=== PATIENT | male | born 1965 | race Caucasian/White ===

== ENCOUNTER 2016-08-28 09:12 | Outpatient (CLI) | payer OTHER ==
[2016-08-28 13:50] LABS: BUN - BLOOD UREA NITROGEN 20 mg/dL (6-20); CALCIUM 9.8 mg/dL (8.5-10.3); CARBON DIOXIDE - CO2 23 mmol/L (21-32); CHLORIDE 105 mmol/L (101-111); CHOL/HDL RATIO 4.7 (<5.0); CHOLESTEROL 177 mg/dL; CREATININE 0.8 mg/dL (0.6-1.2); GFR - MDRD 103 (>89); GLUCOSE 186 mg/dL (70-100); HDL CHOLESTEROL 38 mg/dL; LDL/HDL RATIO 2.4 (<3.6); SODIUM 136 mmol/L (135-145); TRIGLYCERIDES 228 mg/dL; VLDL CHOLESTEROL 46 mg/dL
== END 2016-08-28 09:13 | disposition home or self-care (01) ==
LOC: LAB.WCP 09:12
PROVIDERS: ATTEND Family Medicine
DX: Z00.00 Encounter for general adult medical examination without abnormal findings (principal)
CPT/HCPCS: 36415; 80048; 80061

== ENCOUNTER 2016-10-02 07:47 | Outpatient (CLI) | payer OTHER ==
[2016-10-02 14:36] LABS: HEMOGLOBIN A1C 0.92 g/dL
== END 2016-10-02 07:48 | disposition home or self-care (01) ==
LOC: LAB.WCP 07:47
PROVIDERS: ATTEND Family Medicine
DX: R73.01 Impaired fasting glucose (principal)
CPT/HCPCS: 36415; 82947; 83036

== ENCOUNTER 2017-01-14 07:47 | Outpatient (CLI) | payer OTHER ==
[2017-01-14 13:22] LABS: HEMOGLOBIN A1C 0.78 g/dL
== END 2017-01-14 07:48 | disposition home or self-care (01) ==
LOC: LAB.WCP 07:47
PROVIDERS: ATTEND Family Medicine
DX: E11.9 Type 2 diabetes mellitus without complications (principal)
CPT/HCPCS: 36415; 83036

== ENCOUNTER 2017-08-06 08:00 | Outpatient (CLI) | payer OTHER ==
[2017-08-06 13:03] LABS: HB2 TOTAL 17.2 g/dL; HEMOGLOBIN A1C 0.71 g/dL; HEMOGLOBIN A1C % 5.9 % (4.6-6.2)
[2017-08-06 13:04] LABS: ALBUMIN 4.2 g/dL (3.2-5.5); ALBUMIN/GLOBULIN RATIO 1.6 (1.0-2.2); ALKALINE PHOSPHATASE 42 IU/L (42-121); ALT ALANINE AMINOTRANSFERASE 48 IU/L (10-60); AST ASPARTATE AMINOTRANSFERASE 38 IU/L (10-42); BILIRUBIN,TOTAL 0.6 mg/dL (0.2-1.0); BUN - BLOOD UREA NITROGEN 16 mg/dL (6-20); CALCIUM 9.8 mg/dL (8.5-10.3); CARBON DIOXIDE - CO2 24 mmol/L (21-32); CHLORIDE 109 mmol/L (101-111); CHOL/HDL RATIO 3.5 (<5.0); CHOLESTEROL 110 mg/dL; CREATININE 0.9 mg/dL (0.6-1.2); GFR - MDRD 89 (>89); GLUCOSE 131 mg/dL (70-100); HDL CHOLESTEROL 31 mg/dL; LDL CHOLESTEROL,CALCULATED 57 mg/dL; LDL/HDL RATIO 1.8 (<3.6); SODIUM 138 mmol/L (135-145); TOTAL PROTEIN 6.9 g/dL (6.7-8.2); VLDL CHOLESTEROL 22 mg/dL
== END 2017-08-06 08:01 ==
LOC: LAB.WCP 08:00
PROVIDERS: ATTEND Family Medicine
DX: E11.9 Type 2 diabetes mellitus without complications (principal); I10 Essential (primary) hypertension; E78.5 Hyperlipidemia, unspecified; Z12.5 Encounter for screening for malignant neoplasm of prostate
CPT/HCPCS: 36415; 80053; 80061; 83036; 83721; 84153

== ENCOUNTER 2021-04-08 08:00 | Outpatient (CLI) | payer OTHER ==
--- NOTE | 2021-04-08 17:37 | XRAY Report ---
PROCEDURE: Elbow 3 View LT INDICATIONS: OLECRANON BURSITIS, LEFT ELBOW DIRTECT TRAUMA WEEKS AGO TECHNIQUE: 3 views of the elbow were acquired. COMPARISON: None FINDINGS: Bones: No fractures or dislocations. No suspicious bony lesions. Soft tissues: No elbow joint effusion. Soft tissue swelling noted of the dorsal margin of the elbow joint compatible with reported olecranon bursitis. Calcification noted dorsal to the olecranon proces s concerning for triceps calcific tendinitis. IMPRESSION: 1. Triceps calcific tendinitis. 2. Olecranon bursitis. Reviewed by: Genesis Trimble MD, PhD on 04/08/2021 4:36 PM [facility] Approved by: Genesis Trimble MD, PhD on 04/08/2021 4:36 PM [facility] Station ID: [id number]
== END 2021-04-08 23:59 ==
LOC: DI.N 08:00
PROVIDERS: ATTEND Physician Assistant Medical
DX: M70.22 Olecranon bursitis, left elbow (principal)

== ENCOUNTER 2021-05-02 15:00 | Outpatient (CLI) | payer OTHER ==
--- NOTE | 2021-05-02 16:06 | XRAY Report ---
PROCEDURE: Elbow 3 View LT INDICATIONS: DISPLAC FX OF OLECRANON PROCESS W/O INTRAARTICULAR EXT OF L ULNA TECHNIQUE: 3 views of the elbow were acquired. COMPARISON: April 08, 2021 FINDINGS: BONES/JOINT: No acute, displaced fracture or dislocation. No appreciable joint effusion. Small olecra non enthesophyte. SOFT TISSUES: Soft tissue prominence overlying the olecranon, which may reflect bursitis. Redemonstra agata calcification posterior to the olecranon, which may reflect triceps calcific tendinopathy versus intra-articular body. IMPRESSION: 1.Soft tissue prominence overlying the olecranon, suggesting bursitis. 2.Redemonstrated calcification posterior to the olecranon, which may reflect triceps calcific tendino ward versus intra-articular body. Reviewed by: Hang Perrin MD on 05/02/2021 4:05 PM PST Approved by: Hang Perrin MD on 05/02/2021 4:05 PM PST Station ID: [id number]
== END 2021-05-02 15:01 | disposition home or self-care (01) ==
LOC: DI.N 15:00
PROVIDERS: ATTEND Physician Assistant
DX: S52.022A Displaced fracture of olecranon process without intraarticular extension of left ulna, initial encounter for closed fracture (principal); R93.6 Abnormal findings on diagnostic imaging of limbs; R93.89 Abnormal findings on diagnostic imaging of other specified body structures

== ENCOUNTER 2022-12-05 08:11 | Outpatient (CLI) | payer OTHER ==
[2022-12-05 08:53] LABS: THYROID STIMULATING HORMONE 2.44 uIU/mL (0.34-5.60)
[2022-12-05 08:57] LABS: ESTIMATED AVERAGE GLUCOSE 180 mg/dL (70-100); HEMOGLOBIN A1c% 7.9 % (4.27-6.07)
[2022-12-05 09:11] LABS: CHOL/HDL RATIO 6.8 (<5.0); CHOLESTEROL 205 mg/dL; HDL CHOLESTEROL 30 mg/dL; TRIGLYCERIDES 475 mg/dL (48-352)
[2022-12-05 09:11] LABS: CREATININE,URINE 97.4 mg/dL; MICROALBUM/CREATININE RATIO,UR 32.9 ug/mg (<30.0); MICROALBUMIN,URINE 3.2 mg/dL
[2022-12-05 10:09] LABS: LDL CHOLESTEROL,DIRECT 75 mg/dL (75-193); LDLD/HDL RATIO 2.5 (<3.6)
== END 2022-12-05 08:12 | disposition home or self-care (01) ==
LOC: LAB 08:11
PROVIDERS: ATTEND Nurse Practitioner
DX: E78.5 Hyperlipidemia, unspecified (principal); E11.9 Type 2 diabetes mellitus without complications; Z12.5 Encounter for screening for malignant neoplasm of prostate
CPT/HCPCS: 36415; 80061; 82043; 82570; 83036; 83721; 84153; 84443

== ENCOUNTER 2023-04-05 13:40 | Emergency (ER) | payer OTHER ==
--- NOTE | 2023-04-05 15:42 | XRAY Report ---
PROCEDURE: Ankle 3+V LT INDICATIONS: Trauma TECHNIQUE: 3 views of the ankle were acquired. COMPARISON: None. FINDINGS: Bones: No fractures or dislocations. Ankle mortise is normally aligned. No suspicious bony lesions . Mild osteoarthritic findings of the dorsal midfoot. Dorsal and plantar calcaneal spurs. Soft tissues: No tibiotalar joint effusion. Achilles tendon appears normal. Vascular calcification s. IMPRESSION: Soft tissue swelling without fracture identified. Reviewed by: Jeff Tracy MD on 04/05/2023 2:41 PM [place] Approved by: Jeff Tracy MD on 04/05/2023 2:41 PM [place] Station ID: [id number]
--- NOTE | 2023-04-05 18:04 | ED Physician Documentation ---
History of Present Illness - Stated complaint Stated Complaint: LT FOOT PX/POP - Chief complaint Chief Complaint: Trauma Ext - History obtained from History obtained from: Patient - History of Present Illness Timing: Yesterday Pain level max: 5 Pain level now: 1 - Additonal information Additional information: 57-year-old male presents to the emergency department stating that he injured his left foot yesterday. He states he had corns removed from the plantar aspect 2 days ago. He states yesterday he was at [employer] and felt a pop in the bottom of his foot. Had pain earlier today. The pain has since resolved. No swelling. No bruising. No numbness. No tingling. Nothing makes it better, it was worse with walking earlier. No other injuries. Review of Systems Constitutional: denies: Fever PD PAST MEDICAL HISTORY - Past Medical History Past Medical History: Yes Cardiovascular: Hypertension Respiratory: Sleep apnea, CPAP use Neuro: None Endocrine/Autoimmune: None GI: None : None HEENT: None Psych: None Musculoskeletal: None Derm: None - Past Surgical History Past Surgical History: Yes HEENT: Tonsil/Adenoidectomy - Present Medications Home Medications: Ambulatory Orders Medication Instructions Recorded Confirmed Felodipine [Felodipine ER] 10 mg PO 03/07/13 03/07/13 Losartan [Cozaar] 100 mg PO DAILY 03/07/13 03/07/13 - Allergies Allergies/Adverse Reactions: Allergies Allergy/AdvReac Type Severity Reaction Status Date / Time No Known Drug Allergies Allergy Verified 04/05/23 13:49 - Social History Does the pt smoke?: No Smoking Status: Never smoker Does the pt drink ETOH?: No Does the pt have substance abuse?: No - Immunizations Immunizations are current?: Yes PD ED PE NORMAL - Vitals Vital signs reviewed: Yes - General General: Alert and oriented X 3, No acute distress - Derm Derm: Warm and dry - Extremities Extremities: Other (L foot - No bony tenderness over the dorsum of the foot or plantar aspect of the foot. The metatarsals were palpated and they are full- length as well as percussed. There is no pain. He is ambulating well. Neurovascular intact. Brisk cap refill. Otherwise normal examination of the foot, ankle a) - Neuro Neuro: Alert and oriented X 3 - Psych Psych: Normal mood, Normal affect Results - Vitals Vitals: Vital Signs - 24 hr 04/05/23 18:11 Heart Rate 78 Respiratory 16 Rate Blood Pressure 142/84 H O2 Saturation 98 Oxygen O2 Source Room air - Rads (name of study) Left ankle x-ray Relevant Findings:: Final report received, See rad report PD Medical Decision Making - ED course Complexity details: reviewed results, considered differential, d/w patient, d/w family ED course: A left ankle x-ray was ordered from triage, this does not show any acute abnormalities. His pain is mostly in the arch of his foot. He does not have any pain with range of motion of the toes, palpation of the plantar or dorsum of the foot. No tenderness over the bony aspects of the foot. We will hold off on x-ray at this time. Placed in a postoperative shoe, patient was ambulating without difficulty and with no perceptible limp. We will allow him to use Motrin and Tylenol as needed for pain at home, suspect this should improve over the next few days. Suspect soft tissue injury. Patient counseled regarding signs and symptoms for which I believe and urgent re-evaluation would be necessary. Patient with good understanding of and agreement to plan and is comfortable going home at this time This document was made in part using voice recognition software. While efforts are made to proofread this document, sound alike and grammatical errors may occur. Departure - Departure Disposition: 01 Home, Self Care Clinical Impression: Strain of foot, left Qualifiers: Encounter type: initial encounter Qualified Code(s): S96.912A - Strain of unspecified muscle and tendon at ankle and foot level, left foot, initial encounter Condition: Good Instructions: ED Sprain Foot Follow-Up: Your,doctor in 1 week [Other] Comments: Please follow-up with your doctor for further care. Please return if you worsen. Your x-ray does not show any acute abnormalities today. You can wear the postoperative shoe as needed for comfort, this should be helpful especially over the first few days. You can use Motrin or Tylenol as needed for pain. Forms: PCP List Discharge Date/Time: 04/05/23 18:02
[2023-04-05 18:18] VITALS: BP 142/84; O2SAT 98
== END 2023-04-05 18:02 | disposition home or self-care (01) ==
LOC: ED 13:40
DX: S96.912A Strain of unspecified muscle and tendon at ankle and foot level, left foot, initial encounter (principal); X58.XXXA Exposure to other specified factors, initial encounter; Y92.512 Supermarket, store or market as the place of occurrence of the external cause; I10 Essential (primary) hypertension; Z79.899 Other long term (current) drug therapy
CPT/HCPCS: 99283

== ENCOUNTER 2023-05-01 10:43 | Outpatient (CLI) | payer OTHER ==
--- NOTE | 2023-05-01 11:19 | XRAY Report ---
PROCEDURE: Foot 3+V LT (Weight Bearing) INDICATIONS: LEFT FOOT PAIIN TECHNIQUE: 3 weightbearing views of the left foot COMPARISON: Left ankle x-ray 04/05/2023 FINDINGS: No acute fracture or dislocation. Possible sequela of prior trauma at the distal first metacarpal. Mo derate joint space narrowing of the first MCP joint with osteophyte formation. Mild posterior plantar calcaneal enthesophytes. The soft tissues are unremarkable. IMPRESSION: No acute osseous abnormalities. Possible sequela of prior trauma at the distal first metacarpal with moderate first MCP joint osteoarthritic changes. Reviewed by: Ton Valdez MD on 05/01/2023 11:17 AM PST Approved by: Ton Valdez MD on 05/01/2023 11:17 AM PST Station ID: [id number]
== END 2023-05-01 10:44 | disposition home or self-care (01) ==
LOC: DI 10:43
PROVIDERS: ATTEND Podiatrist
DX: M19.072 Primary osteoarthritis, left ankle and foot (principal)

== ENCOUNTER 2023-05-23 07:49 | Outpatient (CLI) | payer OTHER ==
--- NOTE | 2023-05-25 11:11 | MRI Report ---
PROCEDURE: Foot LT WO INDICATIONS: SPRAIN OF L FOOT TECHNIQUE: Noncontrast sagittal T1 spin echo and T2 fast spin echo with fat saturation, long-axis T1 spin echo a nd T2 fast spin echo with fat saturation, short-axis proton density fast spin echo and T2 fast spin e cho with fat saturation through the forefoot. COMPARISON: Left foot radiographs 05/01/2023 FINDINGS: Image quality: Excellent. Bones and joints: Mild osseous edema is seen at the proximal 5th metatarsal shaft and to a lesser ext ent the 4th metatarsal base that could represent mild osseous contusions versus edema related to the nearby tendon tear or degenerative changes. Moderate degenerative changes are seen at the 1st metatar sophalangeal joint and metatarsal sesamoid articulations. There are mild scattered degenerative nair es of interphalangeal joints of the toes. Subchondral cystic changes are seen at the 4th and 5th meta tarsal bases adjacent to the tarsometatarsal joints. No intraosseous lesions. Soft tissues: The peroneus longus tendon appears thickened and irregular with hyperintense intrasubs tance signal at the plantar aspect of the foot adjacent to the 4th metatarsal base that is suspicious for partial tearing. The peroneus brevis tendon insertion appears to be intact. The visualized plant ar foot muscles demonstrate normal signal and bulk. Remaining visualized flexor and extensor tendons appear intact, without tenosynovitis. Lisfranc ligament complex is intact. No significant soft tissu e ganglion cysts or bursal fluid collections. Sagittal images demonstrate no evidence for plantar pl ate tears. IMPRESSION: 1.Partial intrasubstance tearing of the distal peroneus longus tendon at the plantar aspect of the mi dfoot. 2.Mild osseous edema at the proximal 4th and 5th metatarsals may be related to osseous contusions kenia sher mild stress reaction, reactive edema related to the nearby tendon tearing, or overlying tarsometa tarsal degenerative changes. 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 Reviewed by: Sarbjit Falcon MD on 05/25/2023 11:09 AM PST Approved by: Sarbjit Falcon MD on 05/25/2023 11:09 AM PST Station ID: [id number]
== END 2023-05-23 07:50 | disposition home or self-care (01) ==
LOC: DI 07:49
PROVIDERS: ATTEND Podiatrist
DX: S96.812A Strain of other specified muscles and tendons at ankle and foot level, left foot, initial encounter (principal); R93.6 Abnormal findings on diagnostic imaging of limbs